=== PATIENT | female | born 1975 | race Caucasian/White ===

== ENCOUNTER → 2022-11-12 | Outpatient (CLI) | payer BC ==
--- NOTE | 2022-11-13 08:20 | MM ---
Reason for Exam: Screening (asymptomatic). Baseline mammogram. Patient History: Menarche at age 12. Patient has no children. Last menstrual period: 09/12/2022 Risk Values: Ashely 5 year model risk: 1.0%. NCI Lifetime model risk: 11.6%. Prior Study Comparison: Patient's first Mammogram. Tissue Density: The breast tissue is heterogeneously dense. This may lower the sensitivity of mammography. Findings: Analyzed By CAD. There is no suspicious group of microcalcifications or new suspicious mass in either breast. Overall Assessment: Negative, BI-RAD 1 Management: Screening Mammogram of both breasts in 1 year. A clinical breast exam by your physician is recommended on an annual basis and results should be correlated with mammographic findings. Note on Ashely scores and lifetime risk: 1. A Ashely score greater than 3% is considered moderate risk. If this is the case, consider specialist referral to assess eligibility for a risk reducing agent. If overall lifetime risk for the development of breast cancer is 20% or higher, the patient may qualify for future screening with alternating mammogram and breast MRI. Electronically signed and approved by: Yaw Barahona D.O.
== END | disposition home or self-care (01) ==
LOC: RADMAMWWP 16:09
PROVIDERS: ATTEND Obstetrics & Gynecology
DX: Z12.31 Encounter for screening mammogram for malignant neoplasm of breast (principal)
CPT/HCPCS: 77063; 77067

== ENCOUNTER 2023-03-25 09:59 | Day surgery (SDC) | payer BC ==
[2023-03-19 15:57] VITALS: BMI 35.5
--- NOTE | 2023-03-24 16:33 | P.HPOB ---
History of Present Illness H&P Date: 03/24/23 Chief Complaint: menorrhagia 48 year old G0 presents for D&C hysteroscopy and endometrial ablation with NovaSure. She has history of [place] and got clearance from her manager casino. Review of Systems All systems: negative Constitutional: Denies chills, Denies fever Eyes: denies blurred vision, denies pain Ears, nose, mouth and throat: Denies headache, Denies sore throat Cardiovascular: Denies chest pain, Denies shortness of breath Respiratory: Denies cough Gastrointestinal: Denies abdominal pain, Denies diarrhea, Denies nausea, Denies vomiting Genitourinary: Denies dysuria, Denies hematuria Musculoskeletal: Denies myalgias Integumentary: Denies pruritus, Denies rash Neurological: Denies numbness, Denies weakness Psychiatric: Denies anxiety, Denies depression Endocrine: Denies fatigue, Denies weight change Past Medical History Past Medical History: Hyperlipidemia, Hypertension, Myocardial Infarction ([place]) Additional Past Medical History / Comment(s): Stress [place] Nov 2020, History of Alcoholism Last Myocardial Infarction Date:: 2020 History of Any Multi-Drug Resistant Organisms: None Reported Past Surgical History: Orthopedic Surgery Additional Past Surgical History / Comment(s): Multiple surgeries for Lazy eye., Bilat knee arthroscopy Past Anesthesia/Blood Transfusion Reactions: No Reported Reaction Smoking Status: Former smoker - Past Family History Mother Family Medical History: Cancer Father Family Medical History: Cancer, Deep Vein Thrombosis (DVT) Medications and Allergies Home Medications Medication Instructions Recorded Confirmed Type Aspirin 81 mg PO HS 03/19/23 03/19/23 History Cholecalciferol [Vitamin D3 (10 400 units PO DAILY 03/19/23 03/19/23 History Mcg = 400 Iu)] L.acidoph,Paracasei, B.lactis 1 each PO DAILY 03/19/23 03/19/23 History [Probiotic] Losartan [Cozaar] 25 mg PO HS 03/19/23 03/19/23 History Metoprolol Succinate [Toprol XL] 50 mg PO HS 03/19/23 03/19/23 History Nitroglycerin 0.4 mg SL DAILY PRN 03/19/23 03/19/23 History Allergies Allergy/AdvReac Type Severity Reaction Status Date / Time Penicillins Allergy Unknown Verified 03/19/23 15:19 Exam Osteopathic Statement: *. No significant issues noted on an osteopathic structural exam other than those noted in the History and Physical/Consult. HEart: RRR Lungs: CTAB Abdomen: soft, nontender Extremeties: neg danna's Assessment and Plan (1) Menorrhagia Status: Acute Code(s): N92.0 - EXCESSIVE AND FREQUENT MENSTRUATION WITH REGULAR CYCLE SNOMED Code(s): 890527315 Plan: 1. D&C hysteroscopy and endometrial ablation with NovaSure
[~2023-03-25 09:59] MED LIST: DEXAMETHASONE SOD PHOSPHATE 4 MG/ML 1 ML VIAL IV ONE; LACTATED RINGERS 1,000 ML IV SCH; LIDOCAINE 1% (10MG/ML) FOR IV START INTRADERMA PRN; MIDAZOLAM 2 MG/2 ML VIAL IV PRN; ONDANSETRON 4 MG/2 ML VIAL IVP ONE; Pre Op ABX Message 1 EACH MISC MISCELLANE ONE
[2023-03-25] MEDS ORDERED: DEXAMETHASONE SOD PHOSPHATE 4 MG/ML 1 ML VIAL IVP ONE (10:29)
[2023-03-25] MEDS ORDERED: ONDANSETRON 4 MG/2 ML VIAL IVP ONE (10:29)
[2023-03-25] MEDS ORDERED: MIDAZOLAM 2 MG/2 ML VIAL ONE (10:54)
[2023-03-25] MEDS ORDERED: PROPOFOL 10 MG/ML 20 ML VIAL IV ONE (10:54)
[2023-03-25] MEDS ORDERED: LIDOCAINE 1% INJ 10MG/ML (20 ML MDV) ONE (10:54)
[2023-03-25] MEDS ORDERED: fentaNYL (PF) 50 MCG/ML 2 ML AMP ONE (10:54)
--- NOTE | 2023-03-25 11:32 | P.OP ---
Date of Procedure: 03/25/23 Preoperative Diagnosis: menorrhagia Postoperative Diagnosis: menorrhagia cervical stenosis Procedure(s) Performed: D&C hysteroscopy Anesthesia: MAC Surgeon: Stefanie Lopez Estimated Blood Loss (ml): 2 IV fluids (ml): 200 Urine output (ml): 5 Pathology: other (endometrial currettings) Condition: stable Disposition: PACU Operative Findings: stenotic cervix at 3cm. Description of Procedure: She was taken to the operating room and general anesthesia was obtained without difficulty. She is prepped draped in normal sterile fashion dorsal lithotomy position, legs placed in the Marcello stirrups. Bladder was drained of all urine. Weighted speculum placed in the vagina and the anterior lip of cervix was grasped with single-tooth tenaculum. Cervix was sounded to 3 cm. The internal os was quite stenotic and attempted to be dilated using the Hegar dilators. When it was eventually dilated and hysteroscopy was performed that noted perforation immediately. Removed the hysteroscope and by palpation used a sharp curette to gently obtain endometrial curettings. The NovaSure probe procedure was abandoned due to the perforation. All instruments removed from the vagina and hemostasis was assured. Patient tolerated procedure well, sponge initial counts correct 2. She was taken to recovery in stable condition.
[2023-03-25 11:41] VITALS: TEMP 96.9
[2023-03-25] MEDS: HYDROmorphone 0.5 MG/0.5 ML SYRINGE IVP PRN ×2 (11:45→11:55)
[2023-03-25] MEDS ORDERED: KETOROLAC 15 MG/ML 1 ML VIAL IVP ONE (11:46)
[2023-03-25 13:28] VITALS: BP 111/69; PULSE 77; RESP 12
== END 2023-03-25 13:57 | disposition home or self-care (01) ==
LOC: OR 09:59
PROVIDERS: ATTEND Obstetrics & Gynecology
DX: N84.0 Polyp of corpus uteri (principal); N88.2 Stricture and stenosis of cervix uteri; E78.5 Hyperlipidemia, unspecified; I10 Essential (primary) hypertension; I25.10 Atherosclerotic heart disease of native coronary artery without angina pectoris; K21.9 Gastro-esophageal reflux disease without esophagitis; I25.2 Old myocardial infarction; Z87.891 Personal history of nicotine dependence; Z80.9 Family history of malignant neoplasm, unspecified; Z88.0 Allergy status to penicillin; Z79.82 Long term (current) use of aspirin; Z79.899 Other long term (current) drug therapy
CPT/HCPCS: 81025; 88305; 58558; J2250; J1100; J2405; J2001; J3010; J1885; J2704; J1170

== ENCOUNTER 2023-05-27 05:36 | Day surgery (SDC) | payer BC ==
[~2023-05-27 05:36] MED LIST changes: -DEXAMETHASONE SOD PHOSPHATE 4 MG/ML 1 ML VIAL IV ONE; -LACTATED RINGERS 1,000 ML IV SCH; -MIDAZOLAM 2 MG/2 ML VIAL IV PRN; -ONDANSETRON 4 MG/2 ML VIAL IVP ONE; -Pre Op ABX Message 1 EACH MISC MISCELLANE ONE
[2023-05-27] MEDS: LACTATED RINGERS 1,000 ML IV SCH (06:12)
[2023-05-27] MEDS: ONDANSETRON 4 MG/2 ML VIAL IVP ONE (06:25)
[2023-05-27] MEDS: DEXAMETHASONE SOD PHOSPHATE 4 MG/ML 1 ML VIAL IV ONE (06:25)
[2023-05-27] MEDS: fentaNYL (PF) 50 MCG/ML 2 ML AMP IVP ONE (06:30)
[2023-05-27] MEDS: MIDAZOLAM 2 MG/2 ML VIAL IVP ONE (06:30)
--- NOTE | 2023-05-27 06:49 | P.ANPRN ---
Procedure Note - Anesthesia - Epidural/Spinal Spinal Time Out Performed: Yes Date of Procedure: 05/27/23 Procedure Start Time: : Procedure Stop Time: 06:35 Location of Patient: PreOp Indication: Acute Post-Operative Pain, Analgesia, Requested by Surgeon Sedation Type: Sedate with meaningful contact maintained Preparation: Sterile Prep Position: Sitting Needle Guage: 22 Blood Aspirated: No Pain Paresthesia on Injection Noted: No Events: Uneventful and Well Tolerated (Initial attempt with 25 G needle, difficult to get interspinous space, decided to use 22G needle)
[2023-05-27] MEDS ORDERED: HYDROmorphone 0.5 MG/0.5 ML SYRINGE IVP PRN (07:00)
[2023-05-27] MEDS ORDERED: MIDAZOLAM 2 MG/2 ML VIAL IV PRN (07:00)
[2023-05-27] MEDS ORDERED: GLYCOPYRROLATE 0.2 MG/ML 2 ML VIAL ONE (07:10)
[2023-05-27] MEDS ORDERED: ROCURONIUM 10 MG/ML (5 ML VIAL) IV ONE (07:10)
[2023-05-27] MEDS ORDERED: LIDOCAINE 1% INJ 10MG/ML (20 ML MDV) ONE (07:10)
[2023-05-27] MEDS ORDERED: HYDROmorphone (PF) 1 MG/ML ONE (07:10)
[2023-05-27] MEDS ORDERED: PROPOFOL 10 MG/ML 20 ML VIAL IV ONE (07:10)
[2023-05-27] MEDS ORDERED: fentaNYL (PF) 50 MCG/ML 2 ML AMP ONE (07:10)
[2023-05-27] MEDS ORDERED: PHENYLEPHRINE-0.9% NACL SYG 1,000 MCG/10 ML SYRINGE ONE (07:10)
[2023-05-27] MEDS ORDERED: SUCCINYLCHOLINE CHLORIDE 200 MG/10 ML VIAL IV ONE (07:10)
[2023-05-27] MEDS ORDERED: NEOSTIGMINE 1 MG/ML 10 ML VIAL ONE (07:10)
--- NOTE | 2023-05-27 07:10 | P.HPOB ---
History of Present Illness H&P Date: 05/27/23 Chief Complaint: menorrhagia 48 year old G0 presents for [facility] BS with da anju and diagnostic cystoscopy, possible EULALIA BSO. Review of Systems All systems: negative Constitutional: Denies chills, Denies fever Eyes: denies blurred vision, denies pain Ears, nose, mouth and throat: Denies headache, Denies sore throat Cardiovascular: Denies chest pain, Denies shortness of breath Respiratory: Denies cough Gastrointestinal: Denies abdominal pain, Denies diarrhea, Denies nausea, Denies vomiting Genitourinary: Denies dysuria, Denies hematuria Musculoskeletal: Denies myalgias Integumentary: Denies pruritus, Denies rash Neurological: Denies numbness, Denies weakness Psychiatric: Denies anxiety, Denies depression Endocrine: Denies fatigue, Denies weight change Past Medical History Past Medical History: Hyperlipidemia, Hypertension, Myocardial Infarction ([place]) Additional Past Medical History / Comment(s): Stress [place] Nov 2020, History of Alcoholism Last Myocardial Infarction Date:: 2020 History of Any Multi-Drug Resistant Organisms: None Reported Past Surgical History: Heart Catheterization, Orthopedic Surgery, Uterine Ablation Additional Past Surgical History / Comment(s): Multiple surgeries for Lazy eye., Bilat knee arthroscopy D & C with ablation Past Anesthesia/Blood Transfusion Reactions: No Reported Reaction Additional Past Anesthesia/Blood Transfusion Reaction / Comment(s): no blood tx hx Smoking Status: Former smoker - Past Family History Mother Family Medical History: Cancer Father Family Medical History: Cancer, Deep Vein Thrombosis (DVT) Additional Family Medical History / Comment(s): prostate Medications and Allergies Home Medications Medication Instructions Recorded Confirmed Type Aspirin 81 mg PO HS 03/19/23 05/27/23 History Cholecalciferol [Vitamin D3 (10 400 units PO DAILY 03/19/23 05/27/23 History Mcg = 400 Iu)] L.acidoph,Paracasei, B.lactis 1 each PO DAILY 03/19/23 05/27/23 History [Probiotic] Losartan [Cozaar] 25 mg PO HS 03/19/23 05/27/23 History Metoprolol Succinate [Toprol XL] 50 mg PO HS 03/19/23 05/27/23 History Nitroglycerin 0.4 mg SL DAILY PRN 03/19/23 05/27/23 History Acetaminophen [Tylenol 8 Hour] 650 mg PO Q6H PRN #30 tab 03/25/23 05/27/23 Rx Allergies Allergy/AdvReac Type Severity Reaction Status Date / Time Penicillins Allergy Nausea & Verified 05/27/23 06:10 Vomiting & Diarrhea Exam Osteopathic Statement: *. No significant issues noted on an osteopathic structu ral exam other than those noted in the History and Physical/Consult. Vital Signs Temp Pulse Resp BP Pulse Ox 05/27/23 06:47 57 L 16 108/64 97 05/27/23 05:57 97.4 F L 69 16 134/62 96 Intake and Output 05/26/23 05/27/23 05/27/23 22:59 06:59 14:59 Other: Weight 103.9 kg Heart: Regular rate and rhythm Lungs: Clear to auscultation bilaterally Abdomen: Soft, nontender Extremities: Negative Homans sign Assessment and Plan (1) Menorrhagia Current Visit: No Status: Acute Code(s): N92.0 - EXCESSIVE AND FREQUENT MENSTRUATION WITH REGULAR CYCLE SNOMED Code(s): 685229172 Plan: 1. [facility] BS using da anju and diagnostic cystoscopy, possible EULALIA BSO
[2023-05-27] MEDS: LACTATED RINGERS 1,000 ML IV ONE (07:24)
[2023-05-27] MEDS: BUPIVACAINE (PF) 0.25% 10 ML VIAL SQ ONE (07:54)
--- NOTE | 2023-05-27 08:46 | P.OP ---
Date of Procedure: 05/27/23 Preoperative Diagnosis: 1. menorrhagia Postoperative Diagnosis: same Procedure(s) Performed: Total laparoscopic hysterectomy bilateral salpingectomy using da Lashawn and diagnostic cystoscopy Anesthesia: HANDY Surgeon: Stefanie Lopez Traffic Manager #1: Geneva Fountain Estimated Blood Loss (ml): 5 IV fluids (ml): 400 Urine output (ml): 75 Pathology: other (uterus, cervix, bilateral tubes) Condition: stable Disposition: PACU Description of Procedure: Patient taken the operating room where general anesthesia was obtained without difficulty. She is prepped and draped in normal sterile fashion dorsal lithotomy position, legs placed in the Marcello stirrups. Weighted speculum placed in the vagina and the anterior lip the cervix was grasped with single-tooth tenaculum. The uterus sounded to 8 cm and the cervix diameter was 3.5 cm. The appropriate manipulator tip and ring were placed on the Nakita manipulator. The Nakita manipulator was then placed in the uterus. Bingham catheter was also placed. Attention was then turned to the abdomen and gloves were changed. A 5 mm supraumbilical incision was made the scalpel and a 5 mm optical trocar was placed under direct visualization. 10 cm to the right of this and 2 cm down a 5 mm incision was made and 8 mm da Lashawn port was placed under direct visualization. Same measurements on the opposite side of the patient's abdomen, the 5 mm incision was made and 8 mm da Lashawn port was placed under direct visualization. In the left upper quadrant a 10 mm incision was made and a 10 mm optical trocar was placed under direct visualization. The 5 mm optical trocar was then replaced with the 8 mm da Lashawn camera port. The robot was docked on patient's right side. The camera was introduced and then the monopolar curved scissor and vessel sealer placed under direct visualization. I broke scrub and went to the physician console. The left mesosalpinx was cut and sealed using the vessel sealer. The left fallopian tube was then removed through the specimen preparation assistant port. The left round ligament was sealed and cut using the vessel sealer. The posterior leaf of the broad ligament was taken down using the monopolar curved scissors. Anterior leaf of the broad ligament was then taken down using the monopolar curved scissors. The uterine artery wassealed and cut using the vessel sealer. The bladder flap was then started using the monopolar curved scissors. Attention was then turned to the right side of the patient's anatomy and the right mesosalpinx sealed and cut using the vessel sealer. The right round ligament was csealed and cut using the vessel sealer. Posterior leaf of the broad ligament was taken down using the monopolar curved scissors and the anterior leaf was taken down using the monopolar curved scissors. The uterine artery was sealed and cut using the vessel sealer. The bladder flap was then finished on this side. Anterior colpotomy was made using the monopolar curved scissors. The rest of the uterus was from the vaginal cuff by following the ring around with the monopolar curved scissors through the uterosacral ligaments back to the anterior portion. Once the uterus and cervix were amputated they were pulled through the vaginal cuff. Hemostasis was assured. The instruments were changed for the Cardier forcep and the pratibha suture cut. The vaginal cuff was then closed using 2-O stratafix barbed suture in a running fashion. Hemostasis was again assured and the pelvis was irrigated. All instruments were removed from the abdomen and the robot was undocked. I scrubbed back in to perform a cystoscopy. There were jets from both ureteral orifices. The abdominal incisions were closed with 4-0 Vicryl in a subcuticular fashion. Patient tolerated the procedure well, sponge and instrument counts correct 2 and she was taken to recovery room in stable condition condition
[2023-05-27] MEDS ORDERED: KETOROLAC 15 MG/ML 1 ML VIAL IVP PRN (08:47)
[2023-05-27] MEDS ORDERED: IBUPROFEN 600 MG TAB PO PRN (08:47)
[2023-05-27] MEDS ORDERED: SIMETHICONE 80 MG CHEWABLE PO PRN (08:47)
[2023-05-27] MEDS ORDERED: Acetaminophen-Codeine 300-30mg TAB PO PRN (08:47)
[2023-05-27] MEDS ORDERED: ONDANSETRON 4 MG/2 ML VIAL IVP PRN (08:47)
[2023-05-27] MEDS: Acetaminophen-Codeine 300-30mg TAB PO PRN (15:36)
[2023-05-27] MEDS: SENNOSIDES-DOCUSATE SODIUM 1 EACH TAB PO SCH (20:07)
[2023-05-27 22:12] VITALS: RESP 16
[2023-05-28] MEDS ORDERED: diphenhydrAMINE 50 MG CAP PO PRN (04:41)
[2023-05-28] MEDS: diphenhydrAMINE 25 MG CAP PO PRN (04:59)
[2023-05-28 06:41] LABS: Basophils % (A) 0 %; Eosinophils % (A) 0 %; HCT 29.8 % (34.0-46.0); HGB 9.3 gm/dL (11.4-16.0); Hypochromasia Moderate; Lymphocytes # (A) 2.7 k/uL (1.0-4.8); Lymphocytes % (A) 20 %; MCH 24.1 pg (25.0-35.0); MCHC 31.2 g/dL (31.0-37.0); MCV 77.4 fL (80.0-100.0); Microcytosis Slight; Monocytes # (A) 0.7 k/uL (0-1.0); Monocytes % (A) 5 %; Neutrophils # (A) 9.7 k/uL (1.3-7.7); Neutrophils % (A) 73 %; Platelet Count 335 k/uL (150-450); RBC 3.86 m/uL (3.80-5.40); WBC 13.4 k/uL (3.8-10.6)
--- NOTE | 2023-05-28 08:28 | P.DS ---
Providers Expected date of discharge: 05/28/23 Attending physician: Stefanie oLpez Primary care physician: Carlos DiPonio - Discharge Diagnosis(es) (1) Menorrhagia Current Visit: No Status: Resolved (2) S/P robot-assisted surgical procedure [facility] BS Current Visit: Yes Status: Acute Hospital Course: Patient presented for total laparoscopic hysterectomy bilateral salpingectomy using da Lashawn and diagnostic cystoscopy. Underwent this procedure without complication. She denies nausea, vomiting, chest pain, shortness of breath or calf pain. She is tolerating regular diet passing flatus. Patient will be discharged home post operative day #1 in stable condition to follow-up with me in 4 weeks. Plan - Discharge Summary Discharge Rx Participant: No New Discharge Prescriptions: No Action Metoprolol Succinate [Toprol XL] 50 mg PO HS Acetaminophen [Tylenol 8 Hour] 650 mg PO Q6H PRN #30 tab PRN Reason: Pain Cholecalciferol [Vitamin D3 (10 Mcg = 400 Iu)] 400 units PO DAILY L.acidoph,Paracasei, B.lactis [Probiotic] 1 each PO DAILY Nitroglycerin 0.4 mg SL DAILY PRN PRN Reason: Pain Losartan [Cozaar] 25 mg PO HS Aspirin 81 mg PO HS Discharge Medication List Aspirin 81 mg PO HS 03/19/23 [History] Cholecalciferol [Vitamin D3 (10 Mcg = 400 Iu)] 400 units PO DAILY 03/19/23 [History] L.acidoph,Paracasei, B.lactis [Probiotic] 1 each PO DAILY 03/19/23 [History] Losartan [Cozaar] 25 mg PO HS 03/19/23 [History] Metoprolol Succinate [Toprol XL] 50 mg PO HS 03/19/23 [History] Nitroglycerin 0.4 mg SL DAILY PRN 03/19/23 [History] Acetaminophen [Tylenol 8 Hour] 650 mg PO Q6H PRN #30 tab 03/25/23 [Rx] Follow up Appointment(s)/Referral(s): Stefanie Lopez DO [Doctor of Osteopathic Medicine] - 4 Weeks (at [facility]) Discharge Disposition: HOME SELF-CARE
[2023-05-28] MEDS ORDERED: ACETAMINOPHEN TAB 325 MG TAB PO PRN (08:48)
[2023-05-28 09:47] VITALS: BP 120/65; PULSE 63; TEMP 98
--- NOTE | 2023-05-28 10:28 | P.PN ---
Progress Note - Text 05/28/23 655am 48-year-old female status post hysterectomy, patient received spinal Duramorph for postop pain control. Patient seen and evaluated for postop pain control, she has a VAS of 2 with no complaint of nausea vomiting. She does have pruritus which should subside
== END 2023-05-28 09:05 | disposition home or self-care (01) ==
LOC: OR 05:36 → 4FBP 08:44 → OR 05-28 09:05
PROVIDERS: ATTEND Obstetrics & Gynecology
DX: D39.0 Neoplasm of uncertain behavior of uterus (principal); N92.0 Excessive and frequent menstruation with regular cycle; I10 Essential (primary) hypertension; E78.5 Hyperlipidemia, unspecified; I25.2 Old myocardial infarction; Z98.890 Other specified postprocedural states; Z87.891 Personal history of nicotine dependence; Z79.82 Long term (current) use of aspirin; Z83.2 Family history of diseases of the blood and blood-forming organs and certain disorders involving the immune mechanism; Z88.0 Allergy status to penicillin; Z79.899 Other long term (current) drug therapy
CPT/HCPCS: 58571; 64999; 81025; 85025; 88307; J2250; J0330; J1100; J2710; J0690; J2405; J2001; J3010; J1170; J2704; J2371; J0665

== ENCOUNTER → 2024-01-14 | Outpatient (CLI) | payer BC ==
--- NOTE | 2024-01-23 16:58 | MM ---
Reason for Exam: Screening (asymptomatic). Last mammogram was performed 1 year(s) and 3 month(s) ago. Patient History: Menarche at age 12. Patient has no children. Hysterectomy at age 48. Perimenopausal. Risk Values: Ashely 5 year model risk: 1.0%. NCI Lifetime model risk: 11.4%. Prior Study Comparison: 11/12/2022 Bilateral MG 3D screening mammo w/cad, [facility]. Tissue Density: There are scattered areas of fibroglandular density. Findings: Analyzed By CAD. The pattern is symmetrical. No significant interval change No suspicious groups of microcalcifications, spiculated or lobular masses, architectural distortion or other secondary signs of malignancy are mammographically apparent. Overall Assessment: Negative, BI-RAD 1 Management: Screening Mammogram of both breasts in 1 year. A negative mammogram report should not preclude additional follow up of suspicious palpable abnormalities. Patient should continue monthly self breast exam. A clinical breast exam by your physician is recommended on an annual basis and results should be correlated with mammographic findings. Note on Ashely scores and lifetime risk: 1. A Ashely score greater than 3% is considered moderate risk. If this is the case, consider specialist referral to assess eligibility for a risk reducing agent. 2. If overall lifetime risk for the development of breast cancer is 20% or higher, the patient may qualify for future screening with alternating mammogram and breast MRI. [facility], , 01/23/2024 4:56 PM. Electronically signed and approved by: Mario Garcia D.O. Radiologis
== END | disposition home or self-care (01) ==
LOC: RADMAMWWP 07:45
PROVIDERS: ATTEND Family Medicine
DX: Z12.31 Encounter for screening mammogram for malignant neoplasm of breast (principal); R92.323 Mammographic fibroglandular density, bilateral breasts
CPT/HCPCS: 77063; 77067